=== PATIENT | female | born 1990 | race Caucasian/White ===

== ENCOUNTER 2016-11-25 16:13 | Emergency (ER) | payer OTHER ==
--- NOTE | 2016-11-25 16:16 | PDOC ---
History of Present Illness - General History Source: Patient, Parent(s) Exam Limitations: No Limitations - History of Present Illness Initial Comments: 11/25/16 17:43 The patient is a 26 year old female, with significant past medical history of lyme disease, anxiety, depression, who presents today complaining of 5 days of intermittent, non-radiating left sided chest pain that is 8/10 in severity, and sharp in quality. The chest pain began when she woke up 5 days ago, but is exacerbated when running up steps, taking a deep breath, and moving her arms and shoulders. The patient has taken ibuprofen with mild relief. She reports associated SOB. She notes left leg swelling that she attributes to lyme disease. The patient saw her physician today, who advised her to see a spray cementer. The patient visited the ER instead. Denies heavy lifting, but notes that she recently went rock climbing. No prior history of PE or DVT. No recent travel. Not taking oral contraceptives. No lightheadedness, palpitations. No fever, chills, nausea, vomiting. No abdominal pain. Allergies: none reported Social Hx: No tobacco use. No alcohol use. <Radha Young - Last Filed: 11/25/16 17:50> - General History Source: Patient Exam Limitations: No Limitations <Anna Rodríguez - Last Filed: 11/25/16 18:59> - General Chief Complaint: Chest Pain Stated Complaint: CHEST PAIN,SHORTNESS OF BREATH X 5 DAYS Time Seen by Provider: 11/25/16 16:15 Past History <Radha Young - Last Filed: 11/25/16 17:50> <Anna Rodríguez - Last Filed: 11/25/16 18:59> - Past Medical History Allergies/Adverse Reactions: Allergies Allergy/AdvReac Type Severity Reaction Status Date / Time No Known Allergies Allergy Verified 11/25/16 16:26 Home Medications: Ambulatory Orders Methocarbamol [Robaxin -] 500 mg PO BID PRN #15 tablet 11/25/16 Review of Systems - Review of Systems Able to Perform ROS?: Yes Comments:: 11/25/16 17:43 GENERAL/CONSTITUTIONAL: No: fever, chills, weakness, loss of appetite. HEAD, EYES, EARS, NOSE AND THROAT: No: change in vision, ear pain, discharge, sore throat, throat swelling. CARDIOVASCULAR: Yes: 5 days of intermittent chest pain. No: lightheadedness, palpitations, syncope RESPIRATORY: No: cough, shortness of breath, wheezing, hemoptysis, stridor. GASTROINTESTINAL: No: nausea, vomiting, abdominal cramping, diarrhea, rectal bleeding, constipation. GENITOURINARY: No: dysuria, hematuria, frequency, urgency, flank pain. MUSCULOSKELETAL: No: back pain, neck pain, joint pain, muscle swelling or pain SKIN: No: lesions, pallor, rash or easy bruising. NEUROLOGIC: No: headache, vertigo, paresthesias, weakness ENDOCRINE: No: unexplained weight gain or loss HEMATOLOGIC/LYMPHATIC: No: anemia, easy bleeding, swelling nodes <Radha Young - Last Filed: 11/25/16 17:50> *Physical Exam - Vital Signs Last Vital Signs Temp Pulse Resp BP Pulse Ox 98.3 F 89 18 119/86 98 11/25/16 16:14 11/25/16 16:14 11/25/16 16:14 11/25/16 16:14 11/25/16 16:14 - Physical Exam Comments: 11/25/16 17:44 GENERAL: The patient is in no acute distress. HEAD: Normal with no signs of trauma. EYES: PERRLA, EOMI, sclera anicteric, conjunctiva clear. ENT: Ears normal, nares patent, oropharynx clear without exudates. Moist mucous membranes. NECK: Normal range of motion, supple without lymphadenopathy, JVD, or masses. LUNGS: Breath sounds equal, clear to auscultation bilaterally. No wheezes, and no crackles. HEART:Regular rate and rhythm, normal S1 and S2 without murmur, rub or gallop. CHEST: +reproducible chest pain ABDOMEN: Soft, nontender, normoactive bowel sounds. No guarding, no rebound. EXTREMITIES: Normal range of motion, no edema. No clubbing or cyanosis. No erythema, or tenderness. NEUROLOGICAL: Cranial nerves II through XII grossly intact. Normal speech. No focal neurological deficits. MUSCULOSKELETAL: Back nontender to palpation, no CVA tenderness SKIN: +bruising on the left knee. Warm, Dry, normal turgor, no rashes or lesions noted. <Radha Young - Last Filed: 11/25/16 17:50> Heart Score/ECG Review #1 ECG reviewed & interpreted by me at: 16:30 General ECG Interpretation: Sinus Rhythm, Normal Rate, Normal Intervals, No acute ischemic changes <Anna Rodríguez - Last Filed: 11/25/16 18:59> ED Treatment Course - LABORATORY CBC & Chemistry Diagram: 11/25/16 17:27 11/25/16 17:27 - ADDITIONAL ORDERS Additional order review: Laboratory Results 11/25/16 17:00 Urine HCG, Qual Negative <Radha Young - Last Filed: 11/25/16 17:50> - LABORATORY CBC & Chemistry Diagram: 11/25/16 17:27 11/25/16 17:27 <Anna Rodríguez - Last Filed: 11/25/16 18:59> Medical Decision Making - Medical Decision Making 11/25/16 16:15 A portion of this note was documented by scribe services under my direction. I have reviewed the details of the note, within reason, and agree with the documentation with the following case summary and management plan written by me. Nursing documentation reviewed and incorporated into medical decision making 11/25/16 17:09 Pt states she has pleuritic chest pain whish worsens with taking a deep breath She feels that her left lower extremity is swollen no OCPs No tobacco use No traveling buyer has h/o Lyme dz She has taken motrin for pain with little relief On exam Pt well appearing No rub RRR Lungs clear chest painful to palpation, deep breath, movement will do labs will do CXR will possibly do CT 11/25/16 18:22 Laboratory Tests 11/25/16 11/25/16 17:00 17:27 WBC 5.3 Hgb 13.1 Hct 38.0 Plt Count 240 Neutrophils % 45.2 Lymphocytes % 43.4 H Urine HCG, Qual Negative 11/25/16 18:26 Laboratory Tests 11/25/16 17:27 Sodium 139 Potassium 3.9 Chloride 108 H Carbon Dioxide 23 Anion Gap 8 BUN 7 Creatinine 0.7 Random Glucose 95 11/25/16 18:48 11/25/16 18:48 Laboratory Tests 11/25/16 17:27 D-Dimer < 200 Awaiting chest x ray 11/25/16 18:59 CXR: negative Will discharged to home Follow up with PMD Clinical impression: musculoskeletal chest pain <Anna Rodríguez - Last Filed: 11/25/16 18:59> *DC/Admit/Observation/Transfer - Attestations Scribe Attestion: 11/25/16 17:44 Documentation prepared by HOMERO Blas, acting as medical oncologist for Anna Rodríguez MD. <Radha Young - Last Filed: 11/25/16 17:50> - Discharge Dispostion Admit: No <Anna Rodríguez - Last Filed: 11/25/16 18:59> Diagnosis at time of Disposition: Chest pain Qualifiers: Chest pain type: unspecified Qualified Code(s): R07.9 - Chest pain, unspecified - Discharge Dispostion Disposition: HOME Condition at time of disposition: Stable - Prescriptions Prescriptions: Methocarbamol [Robaxin -] 500 mg PO BID PRN #15 tablet PRN Reason: Pain - Patient Instructions Printed Discharge Instructions: DI for Atypical Chest Pain Additional Instructions: melissa Thank you for coming to the ER today You can take Ibuprofen/Motrin 600mg (THREE TABLETS) every 8 hours for pain Please follow up with your primary doctor Return to the ER for any other concerns or complaints
[2016-11-25 16:37] VITALS: BP 119/86; PULSE 89; TEMP 98.3; BMI 24.1
[2016-11-25 17:49] LABS: BASOPHIL 2.1 % (0-2.0); EOSINOPHIL 1.1 % (0-4.5); MCHC 34.6 g/dl (32.0-36.0); MEAN CELL VOLUME 92.6 fl (80-96); MEAN PLT VOLUME 8.6 fl (7.5-11.1); NEUTROPHILS 45.2 % (42.8-82.8); PLATELET COUNT 240 K/MM3 (134-434); RDW 11.9 % (11.6-15.6); WHITE BLOOD COUNT 5.3 K/mm3 (4.0-10.8)
[2016-11-25 18:18] LABS: ALBUMIN 4.7 g/dl (3.5-5.0); ALK PHOS 58 U/L (32-92); ANION GAP 8 (8-16); BILIRUBIN,TOTAL 0.5 mg/dl (0.2-1.0); CALCIUM 9.4 mg/dl (8.4-10.2); CO2 23 mmol/L (22-28); CREATININE 0.7 mg/dl (0.6-1.3); GLUCOSE,RANDOM 95 mg/dl (74-106); SGOT/AST 19 U/L (10-42); SGPT/ALT 14 U/L (10-40); TOT PROT 7.2 g/dl (6.4-8.3)
[2016-11-25 18:24] LABS: COCKROFT - GAULT NT
[2016-11-25] MEDS ORDERED: KETOROLAC TROMETHAMINE 30 MG/1 ML VIAL IVPUSH ONE (18:26)
[2016-11-25 18:31] LABS: CPK(DFH) 46 IU/L (26-140)
[2016-11-25 18:52] LABS: TROPONIN I (DFP) < 0.03 ng/ml (0.03-0.50)
[2016-11-25] MEDS ORDERED: KETOROLAC TROMETHAMINE 30 MG/1 ML VIAL ONE (18:55)
--- NOTE | 2016-11-27 16:18 | EKG ---
Test Reason : Blood Pressure : / mmHG Vent. Rate : 080 BPM Atrial Rate : 080 BPM P-R Int : 120 ms QRS Dur : 088 ms QT Int : 382 ms P-R-T Axes : 027 073 048 degrees QTc Int : 440 ms NORMAL SINUS RHYTHM WITH SINUS ARRHYTHMIA minimal RVCD NO PREVIOUS ECGS AVAILABLE Confirmed by MD COLEEN, ARIE ([id number]) on 11/27/2016 4:17:46 PM Referred By: DR CHRISTY Confirmed By:ARIE HORNE MD
== END 2016-11-25 19:12 | disposition home or self-care (01) ==
LOC: FER 16:13
PROC: 3E0333Z Introduction of Anti-inflammatory into Peripheral Vein, Percutaneous Approach (ICD-10-PCS; principal; 2016-11-25)
DX: R07.9 Chest pain, unspecified (principal)
CPT/HCPCS: 36415; 71020-TC; 80053; 82550; 84484; 84703; 85025; 85379; 93005; 99283-25